=== PATIENT | male | born 1950 | race Caucasian/White ===

== ENCOUNTER → 2017-11-02 13:46 | Outpatient (CLI) | payer MEDICARE, BC ==
[2013-01-10 10:07] VITALS: BMI 46.9
[~2017-11-02 13:46] MED LIST: COUMADIN5 MG PO; GLUCOPHAGE1000 MG PO; KLOR-CON M2020 MEQ PO; LANTUS SOL100 UNIT/1 SQ; LASIX40 MG PO; LISINOPRIL10 MG PO; MAG-OX 400 MG400 MG PO; METAMUCIL FIB1 WAFER PO; MIRALAX17 GM PO; MULTI-DAY VITAM1 TAB PO; MVI; PERCOCET 10/3251 TA1 PO; PRAVACHOL40 MG PO; PREVASTATIN; SALINE FLUSH10 ML IV; WARFARIN; WESTCORT 0.2% C15 GM TP; ZYDONE PO; ZYLOPRIM300 MG PO; [UNRECOGNIZED DRUG - OTHER]; [UNRECOGNIZED DRUG - OTHER]; [UNRECOGNIZED DRUG - OTHER] PO
== END | disposition home or self-care (01) ==
LOC: D.CT 13:46
DX: M54.16 Radiculopathy, lumbar region (principal)

== ENCOUNTER → 2018-04-17 07:46 | Outpatient (CLI) | payer MEDICARE, BC ==
[2013-01-10 10:07] VITALS: BMI 46.9
[2018-04-17 08:23] LABS: BASOPHILS 0.3 % (0-2); EOSINOPHILS 2.1 % (0-7); HEMATOCRIT 42.8 % (42.0-54.0); HEMOGLOBIN 14.4 g/dL (13.5-17.5); IMMATURE GRANULOCYTES 0.5 % (0-5); LYMPHOCYTES 19.5 % (15-50); MCH 33.1 pg (26.0-34.0); MCHC 33.6 g/dL (31.0-37.0); MCV 98.4 fL (80.0-100.0); MEAN PLATELET VOLUME 9.2 fL (7.4-10.4); MONOCYTES 8.9 % (2-11); NEUTROPHILS 68.7 % (40-80); PLATELET COUNT 161 10x3/uL (130-400); RBC 4.35 10x6/uL (4.20-6.10); RDW 14.3 % (11.5-14.5); WBC 6.6 10x3/uL (4.8-10.8)
[2018-04-17 11:51] LABS: ERYTHROCYTE SEDIMENTATION RATE 30 mm/hr (0-20)
== END | disposition home or self-care (01) ==
LOC: D.NM 07:46
PROVIDERS: Orthopaedic Surgery
DX: M25.551 Pain in right hip (principal)

== ENCOUNTER → 2018-04-22 19:46 | Outpatient (CLI) | payer MEDICARE, BC ==
[2013-01-10 10:07] VITALS: BMI 46.9
== END | disposition home or self-care (01) ==
LOC: D.LABREF 19:46
DX: M16.11 Unilateral primary osteoarthritis, right hip (principal); Z11.8 Encounter for screening for other infectious and parasitic diseases

== ENCOUNTER 2018-04-25 10:26 | Inpatient (IN) | payer MEDICARE, BC ==
[~2018-04-25] VITALS: Ht 180.3 cm; Wt 127.5 kg
[2018-05-08] MEDS ORDERED: JANUMET XR 50-1 EACH PO (11:21)
[2018-05-08] MEDS ORDERED: LIPITOR20 MG PO (11:22)
[2018-05-08] MEDS ORDERED: XARELTO10 MG PO (11:22)
[2018-05-08] MEDS ORDERED: TOUJEO SOL300 UNIT/1 SC (11:23)
[2018-05-08] MEDS ORDERED: NEURONTIN 300300 MG PO (11:23)
[2018-05-08 12:07] LABS: APPEARANCE CLEAR (CLEAR); BILIRUBIN NEGATIVE (NEGATIVE); COLOR YELLOW (YELLOW); GLUCOSE NEGATIVE (NEGATIVE); KETONE NEGATIVE (NEGATIVE); NITRITE NEGATIVE (NEGATIVE); PROTEIN NEGATIVE (NEGATIVE); SPECIFIC GRAVITY 1.015 (1.005-1.020); UROBILINOGEN NORMAL (NORMAL)
[2018-05-08 12:38] LABS: BASOPHILS 0.4 % (0-2); EOSINOPHILS 1.7 % (0-7); HEMATOCRIT 43.5 % (42.0-54.0); HEMOGLOBIN 14.6 g/dL (13.5-17.5); IMMATURE GRANULOCYTES 0.6 % (0-5); MCH 33.3 pg (26.0-34.0); MCHC 33.6 g/dL (31.0-37.0); MCV 99.3 fL (80.0-100.0); MEAN PLATELET VOLUME 9.4 fL (7.4-10.4); MONOCYTES 9.9 % (2-11); NEUTROPHILS 71.4 % (40-80); PLATELET COUNT 169 10x3/uL (130-400); RBC 4.38 10x6/uL (4.20-6.10); RDW 14.5 % (11.5-14.5); WBC 9.4 10x3/uL (4.8-10.8)
[2018-05-08 12:50] LABS: APTT 28.1 SECONDS (22.8-39.4); INR 1.28 (0.85-1.17); PROTIME 15.4 SECONDS (11.6-15.0)
[2018-05-08 12:51] LABS: CALC OSMOLALITY 284 mosm/kg (275-300); CALCIUM 9.8 mg/dL (8.5-10.1); CARBON DIOXIDE 28.3 mmol/L (21.0-32.0); CHLORIDE - SERUM 105 mmol/L (98-107); POTASSIUM - SERUM 4.1 mmol/L (3.5-5.1); SODIUM 142 mmol/L (136-145); UREA NITROGEN 21 mg/dL (7-18); eGFR NON AFRICAN AMERICAN 79 mL/min (90-120)
[2018-05-08 12:52] LABS: GLUCOSE 85 mg/dL (74-106)
[2018-05-15 11:36] VITALS: BP 122/67; BMI 39.4
--- NOTE | 2018-05-15 23:50 | NUR ---
LAB AT BEDSIDE FOR STAT DRAW, XRAYS COMPLETE
[2018-05-15 23:57] LABS: HEMATOCRIT 41.4 % (42.0-54.0); LYMPHOCYTES 8.1 % (15-50); MCH 32.5 pg (26.0-34.0); MCHC 33.8 g/dL (31.0-37.0); MCV 96.1 fL (80.0-100.0); MEAN PLATELET VOLUME 8.2 fL (7.4-10.4); NEUTROPHILS 83.7 % (40-80); PLATELET COUNT 183 10x3/uL (130-400); RBC 4.31 10x6/uL (4.20-6.10); RDW 15.2 % (11.5-14.5); WBC 15.2 10x3/uL (4.8-10.8)
[2018-05-16 00:34] VITALS: BP 115/69
[2018-05-16 04:32] VITALS: BP 109/68; BMI 39.2
[2018-05-16 06:20] LABS: CALC OSMOLALITY 293 mosm/kg (275-300); CALCIUM 8.7 mg/dL (8.5-10.1); CARBON DIOXIDE 24.8 mmol/L (21.0-32.0); CHLORIDE - SERUM 108 mmol/L (98-107); CREATININE - SERUM 0.8 mg/dL (0.6-1.3); POTASSIUM - SERUM 4.3 mmol/L (3.5-5.1); SODIUM 145 mmol/L (136-145); UREA NITROGEN 16 mg/dL (7-18); eGFR NON AFRICAN AMERICAN > 90 mL/min (90-120)
[2018-05-16 06:41] LABS: GLUCOSE 170 mg/dL (74-106)
[2018-05-16 07:27] LABS: BASOPHILS 0.2 % (0-2); EOSINOPHILS 0 % (0-7); HEMATOCRIT 39.6 % (42.0-54.0); IMMATURE GRANULOCYTES 0.3 % (0-5); LYMPHOCYTES 5.3 % (15-50); MCHC 32.8 g/dL (31.0-37.0); MCV 97.5 fL (80.0-100.0); MEAN PLATELET VOLUME 9.7 fL (7.4-10.4); NEUTROPHILS 86.2 % (40-80); PLATELET COUNT 178 10x3/uL (130-400); RBC 4.06 10x6/uL (4.20-6.10); RDW 15.9 % (11.5-14.5); WBC 12.8 10x3/uL (4.8-10.8)
--- NOTE | 2018-05-16 07:39 | NUR ---
0100) REC'D.AWAKE ALERT AND ORIENTED WITH FAMILY IN ATTENDANCE.DRSG DRY AND INTACT TO LEFT HIP WITH HEMOVAC DRAIN AND PROVENA DRAIN. FOOT PINK AND WARM.WIGGLE TOES AND DORSIFLEXES PEDAL PULSE PRESENT.LEFT FOOT DUSKY IN COLOR WITH FAINT PULSE PALABLE PHOTOGRAPHS CURATOR OBSERVED ALSO.PATIENT STATES THIS FOOT WAS LIKE THIS PRIOR TO SURGERY.STATES WAS UNABLE TO DO BLOCK.DUE TO LARGELY OBESE ABDOMEN. DENIES PAIN AT PRESENT TIME.02 4L NC.02 SATS 97%WILL CONTINUE TO OBSERVE FOR ANY CHGES.IN NEUROVASCULAR STATUS AND FOLLOW CURRENT PLAN OF CARE.ROD DRAINING DK. YELLOW URINE.
--- NOTE | 2018-05-16 07:43 | NUR ---
REC'D IN WALKING ROUNDS AWAKE AND ALERT. RESP EVEN AND UNLABORED WITH NO DISTRESS NOTED. CAN EXPRESS NEEDS AND WANTS. NO C/O NOTED OR VOICED AT THIS TIME. NOTED DISCOLORATION TO LEFT LOWER EXT. ASSESSMENT COMPLETED. C/L IN REACH AT BEDSIDE.
[2018-05-16 11:02] VITALS: Ht 180.3 cm; Wt 127.5 kg
--- NOTE | 2018-05-16 18:45 | NUR ---
PATIENT SITTING UP IN BED WITH NO COMPLAINTS AT THIS TIME. FAMILY AT BEDSIDE. CALL LIGHTW JAXON GOLDBERG.
[2018-05-16 21:11] VITALS: BP 114/65
[2018-05-17 00:46] VITALS: BP 128/68
--- NOTE | 2018-05-17 03:49 | NUR ---
PT COMPLAINING OF BURNING TO RIGHT SIDE. FOUND LEAKING SEROSANGUINOUS FLUID FROM AROUND DRAIN SITE TUBING INSERTION SITE. DRAIN LINE STILL IN INSERTION SITE. NOTIFIED SONG AND DANCE PERFORMER WILLIE Francis APPLIED DRESSING TO SITE. TOLERATED WELL. VS STABLE AND AFEBRILE. NO VISUAL CUES OF DISTRESS NOTED. DENIES ANY OTHER NEEDS AT THIS TIME. BED LOW. SIDE RAILS UP X2. CALL LIGHT IN REACH. WILL CONTINUE TO MONITOR.
[2018-05-17 05:42] VITALS: BP 161/77
[2018-05-17 05:42] LABS: HEMOGLOBIN 11.5 g/dL (13.5-17.5); LYMPHOCYTES 13.2 % (15-50); MCH 33.2 pg (26.0-34.0); MCHC 34.8 g/dL (31.0-37.0); NEUTROPHILS 74.9 % (40-80); PLATELET COUNT 145 10x3/uL (130-400); RBC 3.46 10x6/uL (4.20-6.10); RDW 15.3 % (11.5-14.5)
[2018-05-17 05:43] LABS: MCV 95.4 fL (80.0-100.0); WBC 9.2 10x3/uL (4.8-10.8)
--- NOTE | 2018-05-17 07:30 | NUR ---
PT ASSISTED TO BSC AND BACK TO BED. WOUND VAC DRESSING INTACT AND DRAINING. HEMOVAC DRAIN INTACT AND DRAINING BLOODY DRAINAGE. 4X4'S TO DRAIN INSERTION SATURATED WITH SEROSANGEOUNOUS DRAINAGE. DRESSING CHANGED. F/C PATENT TO GRAVITY DRAINING YELLOW URINE. PT DENIES PAIN AT THIS TIME. CL WITHIN REACH. ENCOURAGED TO CALL WITH NEEDS. CONTINUE POC
--- NOTE | 2018-05-17 08:30 | NUR ---
DR. HOWARD PRESENT, INFORMED OF DRAINAGE SEEPING FROM HEMOVAC DRAIN SITE. ORDERED TO REMOVE HEMOVAC DRAIN AND COVER SITE WITH 4X4'S. PT ANGELIKA WELL. DRAIN TIP INTACT. AREA COVERED WITH 4X4'S AND TAPED INTO PLACE.
[2018-05-17 09:13] VITALS: BP 113/78
[2018-05-17 10:55] LABS: ALBUMIN 2.5 g/dL (3.4-5.0); ALKALINE PHOSPHATASE 70 U/L (46-116); ALT (SGPT) 17 U/L (10-68); CALC OSMOLALITY 280 mosm/kg (275-300); CALCIUM 9.3 mg/dL (8.5-10.1); CARBON DIOXIDE 25.2 mmol/L (21.0-32.0); CHLORIDE - SERUM 105 mmol/L (98-107); CREATININE - SERUM 0.7 mg/dL (0.6-1.3); GLUCOSE 159 mg/dL (74-106); PROTEIN - SERUM 5.6 g/dL (6.4-8.2); SODIUM 139 mmol/L (136-145); UREA NITROGEN 12 mg/dL (7-18); eGFR NON AFRICAN AMERICAN > 90 mL/min (90-120)
[2018-05-17 12:00] VITALS: BP 121/73
[2018-05-17 16:00] VITALS: BP 129/68
[2018-05-17 22:09] VITALS: BP 111/58
[2018-05-18 05:21] VITALS: BP 127/76
[2018-05-18 06:53] LABS: BASOPHILS 0.2 % (0-2); EOSINOPHILS 1.5 % (0-7); HEMATOCRIT 30.8 % (42.0-54.0); HEMOGLOBIN 10.1 g/dL (13.5-17.5); IMMATURE GRANULOCYTES 0.5 % (0-5); LYMPHOCYTES 11.3 % (15-50); MCH 31.6 pg (26.0-34.0); MCHC 32.8 g/dL (31.0-37.0); MCV 96.3 fL (80.0-100.0); MEAN PLATELET VOLUME 9.7 fL (7.4-10.4); NEUTROPHILS 75.5 % (40-80); PLATELET COUNT 151 10x3/uL (130-400); RDW 14.9 % (11.5-14.5); WBC 9.7 10x3/uL (4.8-10.8)
[2018-05-18 07:20] LABS: ALBUMIN 2.2 g/dL (3.4-5.0); ALKALINE PHOSPHATASE 71 U/L (46-116); ALT (SGPT) 15 U/L (10-68); BILIRUBIN - TOTAL 0.61 mg/dL (0.2-1.3); CALC OSMOLALITY 279 mosm/kg (275-300); CALCIUM 8.9 mg/dL (8.5-10.1); CARBON DIOXIDE 25.2 mmol/L (21.0-32.0); CHLORIDE - SERUM 105 mmol/L (98-107); CREATININE - SERUM 0.7 mg/dL (0.6-1.3); GLUCOSE 143 mg/dL (74-106); POTASSIUM - SERUM 3.6 mmol/L (3.5-5.1); PROTEIN - SERUM 5.5 g/dL (6.4-8.2); SODIUM 140 mmol/L (136-145); UREA NITROGEN 10 mg/dL (7-18); eGFR NON AFRICAN AMERICAN > 90 mL/min (90-120)
--- NOTE | 2018-05-18 08:00 | NUR ---
PT AOX4 RESP EVEN AND NONLABORED PT DENIES NEEDS AT THIS TIME IV TO RIGHT FOREARM PATENT AND INTACT AT THIS TIME SRX2 BED AT LOWEST SETTING CALL LIGHT WITHIN REACH WILL CONTINUE TO MONITOR
[2018-05-18 09:00] VITALS: BP 105/54
--- NOTE | 2018-05-18 11:00 | NUR ---
rehab prescreen: this pt would make a good canididate to inpatient rehab. will be able to admit for the trocanter fracture. we can bring down tomorrow if ok with the doctor. thank you for this eval. jay jay reardon lpn clinical liasion
[2018-05-18 13:40] VITALS: BP 99/58
[2018-05-18 18:20] VITALS: BP 92/51
--- NOTE | 2018-05-18 21:12 | NUR ---
PT HAS BEEN SITTING UP IN CHAIR. HAD SMALL LOOSE BM ON BEDPAN. ASSISTED PT USING WALKER TO GET BACK IN BED. WOUND VAC ON AND FUNCTIONING PROPERLY. FSBS 250 - TREATED WITH INSULIN PER SS. GAVE NORCO-7.5 FOR HEADACHE PAIN 06/02. GAVE SCHEDULED MEDS. NO OTHER NEEDS. ASSESSMENT PER FLOW-SHEET. WILL CONTINUE TO MONITOR.
[2018-05-18 21:44] VITALS: BP 103/54
[2018-05-19 01:13] VITALS: BP 96/51
[2018-05-19 05:31] VITALS: BP 107/54
[2018-05-19 06:52] LABS: BASOPHILS 0.4 % (0-2); EOSINOPHILS 3.6 % (0-7); HEMATOCRIT 28.7 % (42.0-54.0); HEMOGLOBIN 9.5 g/dL (13.5-17.5); IMMATURE GRANULOCYTES 0.5 % (0-5); LYMPHOCYTES 17.9 % (15-50); MCH 32.2 pg (26.0-34.0); MCHC 33.1 g/dL (31.0-37.0); MCV 97.3 fL (80.0-100.0); MEAN PLATELET VOLUME 9.7 fL (7.4-10.4); MONOCYTES 10.6 % (2-11); PLATELET COUNT 174 10x3/uL (130-400); RBC 2.95 10x6/uL (4.20-6.10); WBC 7.7 10x3/uL (4.8-10.8)
[2018-05-19 07:07] LABS: ALKALINE PHOSPHATASE 66 U/L (46-116); BILIRUBIN - TOTAL 0.61 mg/dL (0.2-1.3); CALCIUM 8.8 mg/dL (8.5-10.1); CARBON DIOXIDE 27.2 mmol/L (21.0-32.0); CHLORIDE - SERUM 106 mmol/L (98-107); CREATININE - SERUM 0.7 mg/dL (0.6-1.3); GLUCOSE 106 mg/dL (74-106); POTASSIUM - SERUM 3.9 mmol/L (3.5-5.1); PROTEIN - SERUM 5.3 g/dL (6.4-8.2); SODIUM 141 mmol/L (136-145); eGFR NON AFRICAN AMERICAN > 90 mL/min (90-120)
[2018-05-19 07:08] LABS: ALT (SGPT) 22 U/L (10-68); CALC OSMOLALITY 281 mosm/kg (275-300); UREA NITROGEN 14 mg/dL (7-18)
--- NOTE | 2018-05-19 07:15 | NUR ---
MORNING ASSESSMENT COMPLETE. SEE ASSESSMENT FLOWSHEET FOR FURTHER DETAILS. PT LYING IN BED AAO X4 TO PERSON, PLACE, TIME, AND SITUATION. DENIES NEEDS AT THIS TIME. CL IN REACH. SIDE RAILS UP X3 FOR PATIENT SAEFTY.
[2018-05-19 09:40] VITALS: BP 116/56
[2018-05-19 14:15] VITALS: BP 108/58
[2018-05-19] MEDS ORDERED: HYDROCODON-ACE1 EAC2 PO (16:48)
[2018-05-19] MEDS ORDERED: BAYER CHEWABLE81 MG PO (16:48)
== END 2018-05-19 18:21 | DRG 469 ==
LOC: D.SDCHOLD 05-08 10:00 → D.MS 05-15 11:00 → D.SDCHOLD 05-15 11:00 → D.MS 05-16 00:07
PROVIDERS: Family Medicine; ADMIT Orthopaedic Surgery
PROC: 0SR90JZ Replacement of Right Hip Joint with Synthetic Substitute, Open Approach (ICD-10-PCS; principal; 2018-05-15 13:30)
PROC: 0QS604Z Reposition Right Upper Femur with Internal Fixation Device, Open Approach (ICD-10-PCS; 2018-05-15 13:30)
DX: T84.030A Mechanical loosening of internal right hip prosthetic joint, initial encounter (principal); S72.111A Displaced fracture of greater trochanter of right femur, initial encounter for closed fracture; M97.01XA Periprosthetic fracture around internal prosthetic right hip joint, initial encounter; I10 Essential (primary) hypertension; E11.9 Type 2 diabetes mellitus without complications; I25.10 Atherosclerotic heart disease of native coronary artery without angina pectoris; E11.65 Type 2 diabetes mellitus with hyperglycemia

== ENCOUNTER → 2018-05-13 11:49 | Outpatient (CLI) | payer MEDICARE, BC ==
[2013-01-10 10:07] VITALS: BMI 46.9
[~2018-05-13 11:49] MED LIST changes: +BAYER CHEWABLE81 MG PO; +HYDROCODON-ACE1 EAC2 PO; +JANUMET XR 50-1 EACH PO; +LIPITOR20 MG PO; +NEURONTIN 300300 MG PO; +TOUJEO SOL300 UNIT/1 SC; +XARELTO10 MG PO
== END | disposition home or self-care (01) ==
LOC: D.CT 11:49
DX: M25.551 Pain in right hip (principal)

== ENCOUNTER 2018-05-19 15:00 | Inpatient (IN) | payer MEDICARE, BC ==
[~2018-05-19] VITALS: Ht 180.3 cm; Wt 127.5 kg
[~2018-05-19 15:00] MED LIST changes: -BAYER CHEWABLE81 MG PO; -HYDROCODON-ACE1 EAC2 PO
[2018-05-19] MEDS ORDERED: BAYER CHEWABLE81 MG PO (16:48)
[2018-05-19] MEDS ORDERED: HYDROCODON-ACE1 EAC2 PO (16:48)
--- NOTE | 2018-05-19 19:44 | NUR ---
ADMIT TO 1110 WITH [facility]RT HIP REVISION FOR PHYSICAL REHAB AND SERVICES OF DR MEDINA. AWAKE AND ALERT. ORIENTED X 4. RESPIRATIONS UNLABORED. WEARS C-PAP AT HS. RIGHT HIP WOUND VAC IN PLACE. SCDS X [address]. NOTED REDNESS WARMTH AND SWELLING NOTED TO RIGHT LEG ESPECIALLY AROUND KNEE. VOICES SOME CONCERN ABOUT DIABETIC MEDICATIONS. I EXPLAINED THAT WE WOULD REVIEW HIS MEDICATION. CALL LIGHT IN REACH.
[2018-05-19 21:54] VITALS: BP 116/63; BMI 39.2
[2018-05-19 23:58] LABS: APPEARANCE HAZY (CLEAR); BILIRUBIN NEGATIVE (NEGATIVE); COLOR PINK (YELLOW); GLUCOSE NEGATIVE (NEGATIVE); KETONE NEGATIVE (NEGATIVE); NITRITE NEGATIVE (NEGATIVE); PROTEIN 1+ mg/dL (NEGATIVE); UROBILINOGEN NORMAL (NORMAL)
[2018-05-19 23:59] LABS: BACTERIA NONE SEEN /hpf (NONE SEEN); EPITHELIAL CELLS NSEEN /hpf (0-5); RED CELLS - URINE >50 /hpf (0-5); WHITE CELLS - URINE 0-5 /hpf (0-5)
--- NOTE | 2018-05-20 05:15 | NUR ---
QUIET HOURS. NO DISTRESS NOTED. RESTING QUIETLY WITH RESPIRATIONS UNLABORED. ROD PATENT. WOUND VAC IN PLACE. CALL LIGHT IN REACH.
[2018-05-20 06:55] LABS: BASOPHILS 0.4 % (0-2); EOSINOPHILS 4.3 % (0-7); HEMATOCRIT 29.8 % (42.0-54.0); HEMOGLOBIN 9.9 g/dL (13.5-17.5); IMMATURE GRANULOCYTES 0.6 % (0-5); LYMPHOCYTES 18.9 % (15-50); MCH 32.2 pg (26.0-34.0); MCHC 33.2 g/dL (31.0-37.0); MCV 97.1 fL (80.0-100.0); MEAN PLATELET VOLUME 9.2 fL (7.4-10.4); MONOCYTES 10.9 % (2-11); NEUTROPHILS 64.9 % (40-80); PLATELET COUNT 190 10x3/uL (130-400); RBC 3.07 10x6/uL (4.20-6.10); RDW 14.9 % (11.5-14.5)
[2018-05-20 07:11] LABS: WBC 5.4 10x3/uL (4.8-10.8)
[2018-05-20 07:15] LABS: CALC OSMOLALITY 283 mosm/kg (275-300); CALCIUM 9.4 mg/dL (8.5-10.1); CARBON DIOXIDE 26.4 mmol/L (21.0-32.0); CHLORIDE - SERUM 106 mmol/L (98-107); CREATININE - SERUM 0.6 mg/dL (0.6-1.3); GLUCOSE 139 mg/dL (74-106); POTASSIUM - SERUM 3.8 mmol/L (3.5-5.1); SODIUM 142 mmol/L (136-145); eGFR NON AFRICAN AMERICAN > 90 mL/min (90-120)
[2018-05-20 07:17] LABS: UREA NITROGEN 10 mg/dL (7-18)
--- NOTE | 2018-05-20 08:31 | NUR ---
PATIENT AWAKE WITH SOME CONFUSION AND FORGETFULNESS THIS MORNING. SITTING UP IN WHEELCHAIR EATING BREAKFAST. ATE 100% OF BREAKFAST. NO COMPLAINTS AT THIS TIME. CALL LIGHT WITHIN REACH. WILL CONTINUE TO MONITOR.
[2018-05-20 09:17] VITALS: Ht 180.3 cm; Wt 127.5 kg
--- NOTE | 2018-05-20 12:45 | NUR ---
PATIENT ALERT AND ORIENTED. ATE 100% OF BREAKFAST. NO COMPLAINTS OF PAIN OR DISCOMFORT. RIGHT KNEE IS SWOLLEN, PINK AND WARM TO TOUCH. DR. MEDINA INFORMED. UP FOR THERAPY THIS MORNING AND TOLERATED WELL. WOUND VAC TO RIGHT HIP IN PLACE NO DRAINAGE NOTED IN TUBING. CALL LIGHT WITHIN REACH. WILL CONTINUE TO MONITOR.
--- NOTE | 2018-05-20 14:04 | NUR ---
ROD CATHETER TO BE DC'D. BLADDER TRAINING STARTED.
--- NOTE | 2018-05-20 16:31 | NUR ---
PATIENT ADMITTED TO REHAB FROM ACUTE FLOOR. DR. STORM IS HIS PCP. DISCHARGE PLANS ARE FOR PATIENT TO RETURN HOME. WILL CONTINUE TO FOLLOW WITH PATIENT.
--- NOTE | 2018-05-20 19:50 | NUR ---
THE PATIENT WAS WATCHING TRELEVISION WHEN STAFF ENTERED HIS ROOM. BED IS IN THE LOW POSITION WITH SIDERAILS X2 AND CALL LIGHT WITHIN REACH. PATIENT DEMONSTRATES APPROPRIATE USE OF A CALL LIGHT. THE PATIENT APPEARS COMFORTABLE WITH NO QUESTIONS OR CONCERNS AT THIS TIME.
[2018-05-20 20:04] VITALS: BP 112/59
--- NOTE | 2018-05-21 01:44 | NUR ---
THE PATIENT APPEARS TO BE SLEEPING COMFORTABLY. BED IN THE LOW POSITION WITH SIDERAILS X2 AND CALL LIGHT WITHIN REACH.
--- NOTE | 2018-05-21 07:35 | NUR ---
PT LYING IN BED WATCHING TV. CALL LIGHT IN REACH. PT DENIES NEEDS OR PAIN. BED IN LOW. SIDE RAILS X2. WILL CONTINUE TO MONITOR.
[2018-05-21 08:00] VITALS: BP 95/65
--- NOTE | 2018-05-21 13:19 | NUR ---
PT LYING IN BED. CALL LIGHT IN REACH. PT DENIES NEEDS OR PAIN. WCTM
--- NOTE | 2018-05-21 17:34 | NUR ---
PT SITTING UP IN BED. CALL LIGHT IN REACH. PT DENIES NEEDS OR PAIN WCTM
--- NOTE | 2018-05-21 19:15 | NUR ---
THE PATIENT WAS WATCHING TELEVISION WHEN STAFF ENTERED HIS AREA. BED IS IN THE LO WPOSITION WITH SIDERAILS X2 AND CALL LIGHT WITHIN REACH. WOUND VAC AND SCDS RUNNING. THE PATIENT WAS EDUCATED TO CALL FOR NURSE IF HE HAS TO GET OUT OF BED. THE PATIENT DEMONSTRATES UNDERSTANDING VIA TEACHBACK METHOD. THE PATIENT APPEARS COMFORTABLE WITH NO QUESTIONS OR CONCERNS AT THIS TIME.
[2018-05-21 20:00] VITALS: BP 107/54
--- NOTE | 2018-05-22 02:08 | NUR ---
THE PATIENT APPEARS TO SLEEPING. BED IS IN THE LO WPOSITION WITH SIDERAILS X2 AND CALL LIGHT WITHIN REACH.
[2018-05-22 06:48] LABS: BASOPHILS 0.5 % (0-2); EOSINOPHILS 4.8 % (0-7); HEMATOCRIT 29.5 % (42.0-54.0); HEMOGLOBIN 9.6 g/dL (13.5-17.5); IMMATURE GRANULOCYTES 1.3 % (0-5); LYMPHOCYTES 15.4 % (15-50); MCH 31.7 pg (26.0-34.0); MCHC 32.5 g/dL (31.0-37.0); MCV 97.4 fL (80.0-100.0); MEAN PLATELET VOLUME 9.2 fL (7.4-10.4); RBC 3.03 10x6/uL (4.20-6.10); RDW 14.8 % (11.5-14.5); WBC 6.1 10x3/uL (4.8-10.8)
[2018-05-22 06:57] LABS: PLATELET COUNT 277 10x3/uL (130-400)
[2018-05-22 07:11] LABS: CALCIUM 9.3 mg/dL (8.5-10.1); CARBON DIOXIDE 28.8 mmol/L (21.0-32.0); CHLORIDE - SERUM 106 mmol/L (98-107); GLUCOSE 135 mg/dL (74-106); POTASSIUM - SERUM 3.9 mmol/L (3.5-5.1); SODIUM 142 mmol/L (136-145)
[2018-05-22 07:15] LABS: CALC OSMOLALITY 285 mosm/kg (275-300); CREATININE - SERUM 0.8 mg/dL (0.6-1.3); UREA NITROGEN 15 mg/dL (7-18); eGFR NON AFRICAN AMERICAN > 90 mL/min (90-120)
[2018-05-22 08:00] VITALS: BP 111/64
--- NOTE | 2018-05-22 08:00 | NUR ---
SHIFT ASSMT COMPLETED.
--- NOTE | 2018-05-22 10:28 | RHP ---
PATIENT: MARIOLA DEGROOT MEDICAL RECORD: [id number] ACCOUNT: [id number] [facility] AD[facility] DATE: 05/19/18 REHABILITATION HISTORY AND PHYSICAL EXAMINATION POST ADMISSION PHYSICIAN EXAMINATION DATE OF ADMISSION: 05/19/2018. ADMITTING DIAGNOSIS: Right greater trochanteric fracture. HISTORY OF PRESENT ILLNESS: The patient is a 67-year-old gentleman who is admitted secondary to right greater trochanteric fracture status post right total hip arthroplasty. The patient was admitted on 05/15/2018 for revision of right hip arthroplasty due to loose hardware. It was noted towards the end of surgery that the greater trochanter was fractured. After the patient signed informed consent, he was taken to the operating room and placed under general anesthesia. He was rolled into the left lateral decubitus position with padding between his legs and the patient had a dissection done through the iliotibial band and anterior aspect of the femur. He was noted to have extensive scarring. The femoral head was removed. Cultures and everything were obtained. The patient's hip was examined throughout surgery and seemed to do well. The patient was then placed out to the floor. He currently has a wound VAC hooked up to the incision site. He is currently using a Butts for urination due to lack of mobility. He is nonweightbearing on his right lower extremity for the first 6 weeks and not able to participate in any abduction. He is currently on oxygen at 2 liters per nasal cannula for shortness of breath and has a flutter valve and inspiratory spirometry. The patient also has history of sleep apnea and wears CPAP at bedtime. He is 20% assist with therapy, currently only able to ambulate short distances in the room using a rolling walker. He is low to min assist while maintaining nonweightbearing process on his right lower extremity. He is wanting to return home with his to his prior level of function and will need to work on his nonweightbearing status since he has to remain this for an extended period of time. He will also need to manage and monitor his pain control since he had such an extensive surgery. He is hopefully going to do well here and therapy here, so he can return back to home with his to as close to his prior level of functioning as possible. COMORBIDITIES: In this patient include hypertension, coronary artery disease, peripheral vascular disease, hyperlipidemia, neuropathy, status post right total hip arthroplasty, gout, gastric ulcers, chronic constipation, arthritis, dermatitis, and diabetes. PAST MEDICAL HISTORY: Significant for coronary artery disease, hiatal hernia, chronic back pain, diabetes. PAST SURGICAL HISTORY: Includes a right total hip arthroplasty. He has had a radial nerve ablation to his back and hiatal hernia repair. ALLERGIES: FENOFIBRATE, ZETIA, HMG-COA REDUCTASE MEDICINES, AND SHELLFISH. CURRENT MEDICATIONS: Include a glucose replacement protocol as needed. He is on a low-resistant sliding scale Humalog. He is on metformin he takes 2000 mg daily, Januvia 100 mg daily, Xarelto 10 mg daily, potassium 20 mEq in daily, MiraLax 17 grams b.i.d., multivitamin daily, Mag-Ox 400 mg b.i.d., Zestril 10 mg daily, Lantus 20 units subq daily, Neurontin 300 mg t.i.d. He is on Lasix 40 mg HISTORY AND PHYSICAL [id number] MARIOLA DEGROOT b.i.d., atorvastatin 20 mg q.h.s., aspirin 325 mg daily, allopurinol 300 mg daily, and [place] 7.5 one tab every 4 hours p.r.n. HABITS: No current alcohol or tobacco use. FAMILY HISTORY: Noncontributory. SOCIAL HISTORY: The patient hopes to return back home with his and get back to his prior level of functioning. REVIEW OF SYSTEMS: GENERAL: Does complain of some weakness and fatigue. HEENT: Denies cold, cough, or congestion. CARDIOVASCULAR: Denies chest pain. PHYSICAL EXAMINATION: VITAL SIGNS: Show temperature of 100 right on the dot, pulse is 77, respirations are 20, his blood pressure is 116/63, and sat is 94%. GENERAL: A morbidly obese gentleman in no acute distress, alert upon exam. HEENT: Normocephalic and atraumatic. Mucosa moist. NECK: Supple. No lymphadenopathy. LUNGS: Clear at this time with no wheeze, rhonchi, or rales. HEART: Regular rate and rhythm. No murmurs, rubs or gallops. ABDOMEN: Benign. No rebound, no guarding. EXTREMITIES: He does have some noted postop swelling. He also has some redness to his knee. NEUROLOGIC: He does have some proximal muscle weakness. LABORATORY DATA: White count is 5.4, H&H 9.9 and 29.8, platelet count is 190. Sodium 142, potassium 3.8, BUN and creatinine of 10 and 0.6 and blood sugar was noted to be 139. His admit UA did show some protein and some blood, trace leukocyte esterase, but no bacteria. ASSESSMENT: This is a 67-year-old gentleman admitted to the rehab with a working diagnosis of status post right hip total arthroscopy. The patient has potential to make improvement. We instituted the following multidisciplinary therapies including, but not limited to physical, occupational, respiratory, speech, nutritional services, prosthetics and orthotics. Given his complex medical condition and risk for more complications, rehabilitation services cannot be provided at a low level of care such as skilled nurse facility. PLAN: 1. Admit to [facility] rehab for intensive inpatient therapy to include the following disciplines: A. Physical therapy to improve gait, all transfer skills and bed mobility to a modified independent level. B. Occupational therapy to improve activities of daily living to a modified independent level. C. Case management to assist with discharge planning and placement options. D. Nutrition to assist with nutritional needs. E. Rehabilitation nursing to assist in monitoring the patient's underlying medical conditions and to assist with any type of bowel or bladder management. 2. The patient's current medication and medical care will be continued. 3. The patient will be placed on standard fall precautions. 4. The patient's estimated length of stay is approximately 7-10 days. HISTORY AND PHYSICAL [id number] MARIOLA DEGROOT 5. We will watch his knee area closely. I will start him back on antibiotics. He is discharged from the floor and we will follow up again in the a.m. TRANSINT:[id number] Voice Confirmation ID: [id number] DOCUMENT ID: [id number] BC notes whether there has been none or any medical/functional change since admission: - No change since preadmission screen. BC attests patient continues to be appropriate for IRF: - Continues to be appropriate. JENNIFER MEDINA MD at 1028 CC: [id number] DICTATION DATE: 05/20/18 0803 MILLINERY BLOCKER: 05/20/18 0832 ADM IN [facility] [address] [place] [address]
--- NOTE | 2018-05-22 19:28 | NUR ---
PT SITTING UP IN BED. CALL LIGHT IN REACH. PT DENIES NEEDS OR PAIN. BED IN LOW. SIDE RAILS X2. RESP EVEN AND UNLABORED. WCTM
[2018-05-22 21:37] VITALS: BP 127/62
--- NOTE | 2018-05-23 00:25 | NUR ---
PT RESTING QUIETLY. CALL LIGHT IN REACH. NO SIGNS OF DISTRESS OR PAIN. WCTM
--- NOTE | 2018-05-23 02:59 | NUR ---
RESTING IN BED WITH NO DISTRESS NOTED. CALL LIGHT IN REACH.
--- NOTE | 2018-05-23 05:02 | NUR ---
PT RESTING QUIETLY. CALL LIGHT IN REACH. NO SIGNS OF DISTRESS. WCTM
[2018-05-23 08:00] VITALS: BP 126/60
--- NOTE | 2018-05-23 08:00 | NUR ---
SHIFT ASSMT COMPLETED.
--- NOTE | 2018-05-23 19:24 | NUR ---
PT SITTING IN BED. CALL LIGHT IN REACH. PT DENIES NEEDS OR PAIN. RESP EVEN AND UNLABORED. WCTM
[2018-05-23 21:10] VITALS: BP 140/115
--- NOTE | 2018-05-24 00:36 | NUR ---
PT RESTING QUIETLY. EYES CLOSED. CALL LIGHT IN REACH. NO SIGNS OF DISTRESS OR PAIN. CPAP ON. BED IN LOW. SIDE RAILS X2. WCTM
--- NOTE | 2018-05-24 02:43 | NUR ---
SLEEPING WITH RESPIRATIONS UNLABORED. NO DISTRESS NOTED.
--- NOTE | 2018-05-24 04:16 | NUR ---
PT RESTING QUIETLY. CALL LIGHT IN REACH. NO SIGNS OF DISTRESS OR PAIN. WCTM
[2018-05-24 06:55] LABS: BASOPHILS 0.4 % (0-2); EOSINOPHILS 4.4 % (0-7); HEMATOCRIT 29.4 % (42.0-54.0); HEMOGLOBIN 9.5 g/dL (13.5-17.5); IMMATURE GRANULOCYTES 2.2 % (0-5); LYMPHOCYTES 17.3 % (15-50); MCH 31.8 pg (26.0-34.0); MCHC 32.3 g/dL (31.0-37.0); MCV 98.3 fL (80.0-100.0); MEAN PLATELET VOLUME 8.8 fL (7.4-10.4); MONOCYTES 9.2 % (2-11); NEUTROPHILS 66.5 % (40-80); RBC 2.99 10x6/uL (4.20-6.10); RDW 15.1 % (11.5-14.5); WBC 6.8 10x3/uL (4.8-10.8)
[2018-05-24 07:07] LABS: CALC OSMOLALITY 280 mosm/kg (275-300); CALCIUM 9.3 mg/dL (8.5-10.1); CARBON DIOXIDE 25.1 mmol/L (21.0-32.0); CHLORIDE - SERUM 106 mmol/L (98-107); CREATININE - SERUM 0.7 mg/dL (0.6-1.3); GLUCOSE 109 mg/dL (74-106); POTASSIUM - SERUM 4.1 mmol/L (3.5-5.1); SODIUM 140 mmol/L (136-145); UREA NITROGEN 15 mg/dL (7-18); eGFR NON AFRICAN AMERICAN > 90 mL/min (90-120)
[2018-05-24 07:14] LABS: PLATELET COUNT 333 10x3/uL (130-400)
--- NOTE | 2018-05-24 08:15 | NUR ---
PT RESTING IN BED WITH EYES OPEN CALL LIGHT IN REACH NO PROBLEMS WILL MONITER
[2018-05-24 09:35] VITALS: BP 116/65
--- NOTE | 2018-05-24 15:47 | NUR ---
PT RESTING IN BED WITH EYES OPEN CALL LIGHT IN REACH NO PROBLEMS WILL MONITER
--- NOTE | 2018-05-24 19:42 | NUR ---
THE PATIENT WAS WATCHING TELEVISION WHEN STAFF ENTERED EHR ROOM. BED IS IN THE LO WPOSITION WITH SIDERAILS X2 AND CALL LIGHT WITHIN REACH. THE PATIENT WAS EDUCATED ON THE NEED TO CALL FOR ASSISTANCE WHENEVER HE WANTS TO GET OUT OF BED. THE PATIENT DEMONSTRATES UNDERSTANDING VIA TEACHBACK METHOD. THE PATIENT APPEARS COMFORTABLE WITH NO QUESTIONS OR CONCERNS AT THIS TIME.
[2018-05-24 21:21] VITALS: BP 121/58
--- NOTE | 2018-05-25 02:33 | NUR ---
THE PATIENT APPEARS TO BE SLEEPING COMFORTABLY. BED IN THE LO WPOSITION WITH SIDERAILS X2 AND CALL LIGHT WITHIN REACH.
[2018-05-25 07:14] VITALS: BP 127/61
[2018-05-25 08:00] VITALS: BP 127/61
--- NOTE | 2018-05-25 08:04 | NUR ---
SITTING UP IN BED WATCHING TV. DENIES INCREASED PAIN. IS ALERT AND ORIENTED. CALL LIGHT IN REACH
--- NOTE | 2018-05-25 13:05 | NUR ---
SITTING UP IN BED EATING LUNCH. USES URINAL FOR VOIDING ASST. DENIES NEEDS OR C/O. CALL LIGHT IN REACH
--- NOTE | 2018-05-25 19:30 | NUR ---
THE PATIENT WAS LYING IN BED AND WATCHING TELEVISION WHEN STAFF ENTERED HIS ROOM. BED IS IN THE LOW POSITION WITH SIDERAILS X2 AND CALL LIGHT WITHIN REACH. THE PATIENT WAS EDUCATED ON THE NEED TO CALL THE NURSE WHEN HE WANTS TO GET OUT OF BED. THE PATIENT DEMONSTRATES UNDERSTANDING VIA TEACHBACK METHOD. THE PATIENT APPEARS COMFORTABLE AND HAS NO QUESTIONS OR CONCERNS AT THIS TIME.
--- NOTE | 2018-05-26 01:27 | NUR ---
THE PATIENT APPEARS TO BE SLEEPING. BED IS THE LOW POSITION WITH SIDERAILS X2 AND CALL LIGHT WITHIN REACH.
[2018-05-26 03:42] VITALS: BP 109/65
[2018-05-26 08:14] VITALS: BP 113/51
--- NOTE | 2018-05-26 17:10 | NUR ---
SITTING UP IN BED. DENIES INCREASED PAIN TO HIP. USES URINAL IN BED. DOES MOST OF OWN TASKS BY SELF. CALL LIGHT IN REACH
--- NOTE | 2018-05-26 19:54 | NUR ---
THE PATIENT WAS LYING IN BED AND WATCHING TELEVISION WHEN STAFF ENTERED HIS AREA. BED IS IN TH [place] WPOSITION WITH SIDERAILS X2 AND CALL LIGHT WITHIN REACH. THE PATIENT WAS EDUCATED ON TO CALL THE NURSE WHENEVER HE NEEDS TO GET UP. THE PATIENT DEMONSTRATES UNDERSTANDING VIA TEACHBACK METHOD. THE PATIENT APPEARS COMFORTABLE WITH NO QUESTIONS OR CONCERNS AT THIS TIME.
[2018-05-26 21:55] VITALS: BP 118/63
--- NOTE | 2018-05-27 03:04 | NUR ---
THE PATIENT IS WATCHING TELEVISION. HE APPEARS COMFORTABLE AND HAS NO QUESTIONS OR CONCERNS AT THIS TIME.
[2018-05-27 07:59] LABS: BASOPHILS 0.5 % (0-2); EOSINOPHILS 2.8 % (0-7); HEMATOCRIT 32.2 % (42.0-54.0); HEMOGLOBIN 10.3 g/dL (13.5-17.5); LYMPHOCYTES 17.1 % (15-50); MCH 31.9 pg (26.0-34.0); MCV 99.7 fL (80.0-100.0); MEAN PLATELET VOLUME 8.9 fL (7.4-10.4); MONOCYTES 6.9 % (2-11); NEUTROPHILS 70.7 % (40-80); RBC 3.23 10x6/uL (4.20-6.10); RDW 15.3 % (11.5-14.5); WBC 7.9 10x3/uL (4.8-10.8)
[2018-05-27 08:10] LABS: PLATELET COUNT 402 10x3/uL (130-400)
[2018-05-27 08:16] LABS: CALC OSMOLALITY 285 mosm/kg (275-300); CALCIUM 9.5 mg/dL (8.5-10.1); CARBON DIOXIDE 30.7 mmol/L (21.0-32.0); CHLORIDE - SERUM 106 mmol/L (98-107); CREATININE - SERUM 0.7 mg/dL (0.6-1.3); GLUCOSE 99 mg/dL (74-106); POTASSIUM - SERUM 4.4 mmol/L (3.5-5.1); SODIUM 143 mmol/L (136-145); UREA NITROGEN 15 mg/dL (7-18); eGFR NON AFRICAN AMERICAN > 90 mL/min (90-120)
[2018-05-27 08:31] VITALS: BP 116/65
--- NOTE | 2018-05-27 09:28 | NUR ---
Reviewed chart and spoke with pt about nutrition Pt eating 75-100% on diabetic diet Encouraged protein Pt continues to be screened at low nutritional risk RD following per protocol
[2018-05-27 16:52] LABS: APPEARANCE HAZY (CLEAR); BILIRUBIN NEGATIVE (NEGATIVE); COLOR YELLOW (YELLOW); GLUCOSE NEGATIVE (NEGATIVE); KETONE NEGATIVE (NEGATIVE); NITRITE NEGATIVE (NEGATIVE); PROTEIN NEGATIVE (NEGATIVE); UROBILINOGEN NORMAL (NORMAL)
--- NOTE | 2018-05-27 17:04 | NUR ---
SITTING UP IN BED. HAS BEEN IN THERAPY THIS AFTERNOON. DENIES NEEDS OR INCREASED PAIN. DR MEDINA ORDERED UA. RESULTS PENDING. STILL NWB TO RLE. CALL LIGHT IN REACH
[2018-05-27 20:00] VITALS: BP 112/62
--- NOTE | 2018-05-27 20:26 | NUR ---
PT FAMILY AT BEDSIDE, UP TO TOILET, FLUIDS AND CALL LIGHT WITHIN REACH
--- NOTE | 2018-05-28 01:14 | NUR ---
PT'S 7 DAY DRSG SATURATED WITH DARK RED DRAINAGE, DIVINA INTACT, CLEANED PATTED DRY RECOVERED WITH MEPILEX DRSG, TODAY WOULD HAVE BEEN DAY 6 OF 7, FLUIDS AND CALL LIGHT WITHIN REACH
--- NOTE | 2018-05-28 08:00 | NUR ---
SHIFT ASSMT COMPLETED.
[2018-05-28 08:20] VITALS: BP 124/64
[2018-05-28 20:00] VITALS: BP 132/82
--- NOTE | 2018-05-28 23:50 | NUR ---
PT UP TO TOILET, SHOWERED, FLUIDS AND CALL LIGHT WIHIN REACH
[2018-05-29 07:49] LABS: CALC OSMOLALITY 281 mosm/kg (275-300); CALCIUM 9.5 mg/dL (8.5-10.1); CARBON DIOXIDE 27.9 mmol/L (21.0-32.0); CHLORIDE - SERUM 105 mmol/L (98-107); CREATININE - SERUM 0.8 mg/dL (0.6-1.3); GLUCOSE 93 mg/dL (74-106); POTASSIUM - SERUM 4.4 mmol/L (3.5-5.1); SODIUM 141 mmol/L (136-145); UREA NITROGEN 14 mg/dL (7-18); eGFR NON AFRICAN AMERICAN > 90 mL/min (90-120)
[2018-05-29 07:53] LABS: BASOPHILS 0.6 % (0-2); EOSINOPHILS 2.9 % (0-7); HEMATOCRIT 32.7 % (42.0-54.0); HEMOGLOBIN 10.4 g/dL (13.5-17.5); IMMATURE GRANULOCYTES 1.6 % (0-5); LYMPHOCYTES 20.4 % (15-50); MCH 31.5 pg (26.0-34.0); MCHC 31.8 g/dL (31.0-37.0); MCV 99.1 fL (80.0-100.0); MEAN PLATELET VOLUME 9.1 fL (7.4-10.4); MONOCYTES 8.5 % (2-11); PLATELET COUNT 407 10x3/uL (130-400); RDW 15.3 % (11.5-14.5); WBC 6.8 10x3/uL (4.8-10.8)
[2018-05-29 08:00] VITALS: BP 119/67
--- NOTE | 2018-05-29 08:00 | NUR ---
SHIFT ASSMT COMPLETED.DENIES NEEDS
--- NOTE | 2018-05-29 16:47 | NUR ---
CARE TEAM MEETING: PATIENT PROGRESSING WELL IN THERAPY AND TENATIVE DSICHARGE DATE IS 06/05/18. WILL CONTINUE TO FOLLOW WITH PATIENT.
--- NOTE | 2018-05-29 20:28 | NUR ---
PT UP TO TOILET HAD BM, BACK TO BED, HIP DRSG C/D/I, FLUIDS AND CALL LIGHT WITHIN REACH
[2018-05-29 22:57] VITALS: BP 108/54
--- NOTE | 2018-05-30 01:27 | NUR ---
PT ASLEEP, HOME CPAP ON, FLUIDS AND CALL LIGHT WITHIN REACH
--- NOTE | 2018-05-30 06:50 | NUR ---
GAVE PT SHOWER, CHANGED HIP DRESSING, LEFT COMPRESSION STOCKINGS OFF AT PT REQUEST, SMALL AREA LEFT BURKS BLEEDING PLACED GAUZE KERLIX OVER AREA, PT STATES ANY TAPE USED ON SKIN WILL RIP SKIN OFF WHEN REMOVED
[2018-05-30 08:00] VITALS: BP 116/74
--- NOTE | 2018-05-30 08:19 | NUR ---
PT SITTING UP IN BED EATING BREAKFAST, DENIES NEEDS. WCTM.
--- NOTE | 2018-05-30 10:19 | NUR ---
PT AM MEDS ADMINISTERED. PT CURRENTLY PARTICIPATING IN THERAPY. PT DENIES NEEDS. WCTM.
--- NOTE | 2018-05-30 19:45 | NUR ---
REST IN BED AND WATCH TV.
[2018-05-30 21:20] VITALS: BP 89/64
--- NOTE | 2018-05-31 01:42 | NUR ---
REST QUIETLY IN BED, RESP EVEN, NO DISTRESS. CALL LIGHT IN REACH.
--- NOTE | 2018-05-31 01:53 | NUR ---
RESTING IN BED WITH RESPIRATIONS UNLABORED. NO DISTRESS NOTED. CALL LIGHT IN REACH.
--- NOTE | 2018-05-31 05:12 | NUR ---
ASSISTED PT TO BATHROOM, AND PT HAS BIG AMOUNT OF YELLOW BOWEL.
[2018-05-31 07:44] LABS: BASOPHILS 0.8 % (0-2); EOSINOPHILS 2.9 % (0-7); HEMATOCRIT 33.2 % (42.0-54.0); HEMOGLOBIN 10.6 g/dL (13.5-17.5); IMMATURE GRANULOCYTES 1.4 % (0-5); LYMPHOCYTES 19.4 % (15-50); MCH 31.5 pg (26.0-34.0); MCHC 31.9 g/dL (31.0-37.0); MCV 98.5 fL (80.0-100.0); MEAN PLATELET VOLUME 9.1 fL (7.4-10.4); MONOCYTES 8.2 % (2-11); NEUTROPHILS 67.3 % (40-80); PLATELET COUNT 379 10x3/uL (130-400); RBC 3.37 10x6/uL (4.20-6.10); RDW 15.4 % (11.5-14.5); WBC 6.6 10x3/uL (4.8-10.8)
[2018-05-31 08:00] VITALS: BP 115/66
[2018-05-31 08:01] LABS: CALC OSMOLALITY 284 mosm/kg (275-300); CALCIUM 9.2 mg/dL (8.5-10.1); CARBON DIOXIDE 27.1 mmol/L (21.0-32.0); CHLORIDE - SERUM 105 mmol/L (98-107); CREATININE - SERUM 0.8 mg/dL (0.6-1.3); GLUCOSE 95 mg/dL (74-106); POTASSIUM - SERUM 4.1 mmol/L (3.5-5.1); SODIUM 142 mmol/L (136-145); UREA NITROGEN 17 mg/dL (7-18); eGFR NON AFRICAN AMERICAN > 90 mL/min (90-120)
--- NOTE | 2018-05-31 10:07 | NUR ---
PT AM MEDS ADMINSIETERD. PT LEORA NEEDS. WCTM.
--- NOTE | 2018-05-31 17:54 | NUR ---
PT SHOWERED. PT INCISION LEFT DIRECTOR IT PROJECT. 29 DIVINA REMOVED. 7 DIVINA REMAIN TO LOWER PART OF INCISION. PT EATING DINNER. FAMILY AT BEDSIDE. TM.
--- NOTE | 2018-05-31 19:00 | NUR ---
PATIENT IS RESTING IN HIS BED. HE DENIES ANY NEEDS. BED IS DOWN LOW WITH SIDE RAILS UP X2 AND CALL LIGHT IS IN REACH.
[2018-05-31 20:22] VITALS: BP 110/62
--- NOTE | 2018-06-01 00:02 | NUR ---
PATIENT IS SLEEPING. BED IS DOWN LOW WITH SIDE RAILS UP X2. CALL LIGHT IS IN REACH.
--- NOTE | 2018-06-01 04:02 | NUR ---
PATIENT IS AWAKE. HE DENIES ANY NEEDS. BED IS DOWN LOW WITH SIDE RAILS UP X2 AND CALL LIGHT IN REACH.
--- NOTE | 2018-06-01 07:26 | NUR ---
PT RESTING IN BED, DENIES NEEDS. WCTM.
--- NOTE | 2018-06-01 08:51 | NUR ---
PT AM MEDS ADMINISTERED. PT DENIES NEEDS. WCTM.
--- NOTE | 2018-06-01 18:28 | NUR ---
PT RESTING IN BED EATING DINNER, LEORA NEEDS. WCTM.
--- NOTE | 2018-06-01 19:03 | NUR ---
PATIENT IS RESTING IN HIS BED. BED IS DOWN LOW WITH SIDE RAILS UP X2. CALL LIGHT IS IN REACH.
[2018-06-01 22:32] VITALS: BP 121/53
--- NOTE | 2018-06-02 00:03 | NUR ---
PATIENT IS SLEEPING. HIS BED IS DOWN LOW WITH SIDE RAILS UP X2 AND CALL LIGHT IN REACH.
--- NOTE | 2018-06-02 04:10 | NUR ---
PATIENT IS RESTING IN HIS BED. DENIES ANY NEEDS. BED DOWN LOW. SIDE RAILS UP X2. CL IN REACH.
--- NOTE | 2018-06-02 08:00 | NUR ---
SHIFT ASSMT COMPLETED,DIVINA TO LOWER PORTION OF INCISION INTACT.BREAKFAST TRAY GIVEN.
[2018-06-02 08:32] VITALS: BP 109/61
--- NOTE | 2018-06-02 19:12 | NUR ---
PATIENT IS RESTING IN BED. HE DENIES ANY NEEDS. BED IS DOWN LOW WITH SIDE RAILS UP X2 AND CL IN REACH.
[2018-06-02 20:50] VITALS: BP 115/59
--- NOTE | 2018-06-03 00:02 | NUR ---
PATIENT IS SLEEPING. BED IS DOWN LOW WITH SIDE RAILS UP X2. CL IS IN REACH.
--- NOTE | 2018-06-03 04:03 | NUR ---
PATIENT IS SLEEPING. BED IS DOWN LOW WITH SIDE RAILS UP X2. CL IS IN REACH.
[2018-06-03 07:15] LABS: BASOPHILS 0.4 % (0-2); EOSINOPHILS 2.6 % (0-7); HEMATOCRIT 32.2 % (42.0-54.0); HEMOGLOBIN 10.2 g/dL (13.5-17.5); IMMATURE GRANULOCYTES 1.2 % (0-5); LYMPHOCYTES 15.9 % (15-50); MCH 31.6 pg (26.0-34.0); MCHC 31.7 g/dL (31.0-37.0); MCV 99.7 fL (80.0-100.0); MEAN PLATELET VOLUME 9.3 fL (7.4-10.4); MONOCYTES 12.7 % (2-11); NEUTROPHILS 67.2 % (40-80); RBC 3.23 10x6/uL (4.20-6.10); RDW 15.9 % (11.5-14.5)
[2018-06-03 07:26] LABS: CALC OSMOLALITY 278 mosm/kg (275-300); CALCIUM 9.2 mg/dL (8.5-10.1); CARBON DIOXIDE 26.6 mmol/L (21.0-32.0); CHLORIDE - SERUM 105 mmol/L (98-107); CREATININE - SERUM 0.8 mg/dL (0.6-1.3); GLUCOSE 93 mg/dL (74-106); POTASSIUM - SERUM 4.4 mmol/L (3.5-5.1); SODIUM 140 mmol/L (136-145); UREA NITROGEN 12 mg/dL (7-18); eGFR NON AFRICAN AMERICAN > 90 mL/min (90-120)
[2018-06-03 07:43] LABS: PLATELET COUNT 246 10x3/uL (130-400)
[2018-06-03 08:02] VITALS: BP 124/62
--- NOTE | 2018-06-03 09:12 | NUR ---
ALERT AND ORIENTED. NO C/O PAIN. RESP EVEN AND UNLABORED. CL IN REACH.
--- NOTE | 2018-06-03 09:36 | NUR ---
Nutrition Follow Up: Chart reviewed. Pt is eating 94% meal avg on an ADA diet. +BM 06/02/18. Meds and labs reviewed. Pt continues at low nutritional risk. RD following.
--- NOTE | 2018-06-03 13:37 | NUR ---
NO DISTRESS NOTED. CL IN REACH. RESP EVEN AND UNLABORED. REPORTED SORE THROAT. TESTED FOR FLU. RESULTS NEGATIVE.
--- NOTE | 2018-06-03 16:06 | NUR ---
NO CHANGE IN ASSESSMENT. NO C/O PAIN. RESP EVEN AND UNLABORED. CL IN REACH.
[2018-06-03 20:00] VITALS: BP 117/62
--- NOTE | 2018-06-03 20:16 | NUR ---
PT RUNNING TEMP GIVING TYLENOL WITH MED PASS, FLUIDS AND CALL LIGHT WITHIN REACH
--- NOTE | 2018-06-04 01:12 | NUR ---
PT ASLEEP WITH HOME BIPAP ON, FLUIDS AND CALL LIGHT WITHIN REACH
[2018-06-04 08:00] VITALS: BP 106/64
--- NOTE | 2018-06-04 10:51 | NUR ---
ALERT AND ORIENTED. PARTICIPATING IN THERAPY THIS AM.
--- NOTE | 2018-06-04 16:39 | NUR ---
SHOWER TODAY PER OT.
--- NOTE | 2018-06-04 16:54 | NUR ---
PT LYING IN BED. EYES CLOSED. RESP EVEN AND UNLABORED. BED IN LOW SIDE RAILS X2. CALL LIGHT IN REACH. NO SIGNS OF DISTRESS OR PAIN. WILL CONTINUE TO MONITOR.
--- NOTE | 2018-06-04 19:26 | NUR ---
AWAKE AND ALERT. RESTING IN BED. RESPIRARTIONS UNLABORED. INCISION TO RIGHT HIP HEALING WITH 7 DIVINA REMAINING. NO DISTRESS NOTED. CALL LIGHT IN REACH.
[2018-06-04 19:57] VITALS: BP 114/57
--- NOTE | 2018-06-05 02:52 | NUR ---
CONTINUES RESTING IN BED. NO CHANGE IN CONDITION. RESPIRATIONS UNLABORED.
[2018-06-05 08:00] VITALS: BP 105/60
--- NOTE | 2018-06-05 08:00 | NUR ---
SHIFT ASSMT COMPLETED.BREAKFAST GIVEN.PLANS TO GO HOME TODAY.
[2018-06-05] MEDS ORDERED: NORCO-7.5 PO (08:14)
--- NOTE | 2018-06-05 12:00 | NUR ---
EATING LUNCH.SWABBED NARES FOR FLU;RESULTS POS.
[2018-06-05] MEDS ORDERED: TAMIFLU75 MG PO (13:02)
--- NOTE | 2018-06-05 13:15 | NUR ---
WILL CONTINUE WITH DC.
--- NOTE | 2018-06-05 14:56 | NUR ---
PATIENT DISCHARGING HOME TODAY WITH FAMILY. [facility] WILL PROVIDE THERAPY AT HOME. [facility] HAS DELIVERED A BARIATRIC WALKER TO PATIENT. DR. STORM 06/12/18 @ 9:30, DR. HOWARD 06/18/18 @ 11:15. PATIENT CHOICE FORM FOR HOME HEALTH AND [facility] FORM SIGNED, COPY GIVEN TO PATIENT AND FILED IN CHART. DISCHARGE INSTRUCTIONS WITH [facility] [employer] FAXED TO PCP AND TO HOME HEALTH.
== END 2018-06-05 16:55 | disposition home health service (06) | DRG 561 ==
LOC: D.REHAB 15:00
PROVIDERS: ADMIT Emergency Medicine; ATTEND Emergency Medicine
DX: S72.111D Displaced fracture of greater trochanter of right femur, subsequent encounter for closed fracture with routine healing (principal); I25.10 Atherosclerotic heart disease of native coronary artery without angina pectoris; I10 Essential (primary) hypertension; I73.9 Peripheral vascular disease, unspecified; E78.5 Hyperlipidemia, unspecified; E11.40 Type 2 diabetes mellitus with diabetic neuropathy, unspecified; M10.9 Gout, unspecified; K59.09 Other constipation; M19.90 Unspecified osteoarthritis, unspecified site; K25.9 Gastric ulcer, unspecified as acute or chronic, without hemorrhage or perforation; Z96.641 Presence of right artificial hip joint; G47.30 Sleep apnea, unspecified; L30.9 Dermatitis, unspecified

== ENCOUNTER 2018-06-20 12:06 | Outpatient (CLI) | payer MEDICARE, BC ==
[~2018-06-20] VITALS: Ht 172.7 cm; Wt 125.5 kg
[~2018-06-20 12:06] MED LIST changes: +BAYER CHEWABLE81 MG PO; +HYDROCODON-ACE1 EAC2 PO; +NORCO-7.5 PO; +TAMIFLU75 MG PO
--- NOTE | 2018-06-20 13:50 | NUR ---
1300 PICC LINE HAS BEEN INSERTED. CXR ORDERED 1324 PORTABLE CXR 1 VIEW DONE. 1329 LAB DRAWN USING PERIPHERAL VEIN ON RIGHT HAND. CBC WITH DIFF,BUN/CREATININE,ESR,CRP DRAWN AND SENT TO LAB.
--- NOTE | 2018-06-20 13:53 | NUR ---
1335 CXR RESULTS ARE THAT PICC LINE IS IN PLACE WTIH TIP OVERLYING SUPERIOR VENA CAVA. CHERELLE THOMPSON NOTIFIED AND SHE STATES THAT PICC LINE CAN BE USED. 1342 ABX STARTED AFTER FLUSHING LINE WITH 10CC NS. GOOD BLOOD RETURN NOTED PRIOR TO FLUSH.
[2018-06-20 13:57] LABS: BASOPHILS 0.2 % (0-2); EOSINOPHILS 3.2 % (0-7); HEMATOCRIT 34.5 % (42.0-54.0); HEMOGLOBIN 11.1 g/dL (13.5-17.5); IMMATURE GRANULOCYTES 0.6 % (0-5); LYMPHOCYTES 22.2 % (15-50); MCH 31.8 pg (26.0-34.0); MCHC 32.2 g/dL (31.0-37.0); MCV 98.9 fL (80.0-100.0); MEAN PLATELET VOLUME 9.6 fL (7.4-10.4); MONOCYTES 9.1 % (2-11); NEUTROPHILS 64.7 % (40-80); RBC 3.49 10x6/uL (4.20-6.10); RDW 16.4 % (11.5-14.5); WBC 5.4 10x3/uL (4.8-10.8)
[2018-06-20 14:03] VITALS: BP 120/61; Ht 172.7 cm; Wt 125.5 kg
[2018-06-20 14:06] LABS: PLATELET COUNT 185 10x3/uL (130-400)
[2018-06-20 14:07] LABS: C-REACTIVE PROTEIN 1.2 mg/dL (0.0-0.9); CREATININE - SERUM 0.8 mg/dL (0.6-1.3)
--- NOTE | 2018-06-20 15:06 | NUR ---
1445 PT TOLERATED ABX INFUSION WITHOUT COMPLICATIONS. NO C/O ITCHING OR HIVES.
[2018-06-20 15:41] LABS: ERYTHROCYTE SEDIMENTATION RATE 24 mm/hr (0-20)
== END 2018-06-20 14:50 | disposition home or self-care (01) ==
LOC: D.OPS 12:06
PROVIDERS: ATTEND Student in an Organized Health Care Education/Training Program
DX: T84.59XA Infection and inflammatory reaction due to other internal joint prosthesis, initial encounter (principal)

== ENCOUNTER → 2018-06-24 16:05 | Outpatient (CLI) | payer MEDICARE, BC ==
[2018-06-20 14:03] VITALS: BMI 42.0
[2018-06-24 16:17] LABS: BASOPHILS 0.4 % (0-2); EOSINOPHILS 4.1 % (0-7); HEMATOCRIT 35.3 % (42.0-54.0); IMMATURE GRANULOCYTES 0.4 % (0-5); LYMPHOCYTES 20.4 % (15-50); MCH 31.8 pg (26.0-34.0); MCHC 31.2 g/dL (31.0-37.0); MEAN PLATELET VOLUME 9.7 fL (7.4-10.4); MONOCYTES 8.8 % (2-11); NEUTROPHILS 65.9 % (40-80); PLATELET COUNT 179 10x3/uL (130-400); RBC 3.46 10x6/uL (4.20-6.10); RDW 16.4 % (11.5-14.5); WBC 5.6 10x3/uL (4.8-10.8)
[2018-06-24 16:36] LABS: C-REACTIVE PROTEIN 0.4 mg/dL (0.0-0.9); CREATININE - SERUM 0.7 mg/dL (0.6-1.3)
[2018-06-24 17:57] LABS: ERYTHROCYTE SEDIMENTATION RATE 16 mm/hr (0-20)
== END | disposition home or self-care (01) ==
LOC: D.LABREF 16:05
PROVIDERS: ATTEND Family Medicine
DX: T84.59XA Infection and inflammatory reaction due to other internal joint prosthesis, initial encounter (principal)

== ENCOUNTER → 2018-07-01 14:04 | Outpatient (CLI) | payer MEDICARE, BC ==
[2018-07-01 15:36] LABS: BASOPHILS 0.5 % (0-2); EOSINOPHILS 7.2 % (0-7); HEMATOCRIT 41.2 % (42.0-54.0); HEMOGLOBIN 13.2 g/dL (13.5-17.5); IMMATURE GRANULOCYTES 0.3 % (0-5); LYMPHOCYTES 20.7 % (15-50); MONOCYTES 7.9 % (2-11); NEUTROPHILS 63.4 % (40-80); PLATELET COUNT 193 10x3/uL (130-400); RBC 4.12 10x6/uL (4.20-6.10); RDW 15.8 % (11.5-14.5); WBC 5.8 10x3/uL (4.8-10.8)
[2018-07-01 15:42] LABS: CREATININE - SERUM 0.6 mg/dL (0.6-1.3)
[2018-07-01 16:56] LABS: ERYTHROCYTE SEDIMENTATION RATE 20 mm/hr (0-20)
== END | disposition home or self-care (01) ==
LOC: D.LABREF 14:04
PROVIDERS: Family Medicine
DX: T84.59XA Infection and inflammatory reaction due to other internal joint prosthesis, initial encounter (principal)

== ENCOUNTER → 2018-07-08 13:40 | Outpatient (CLI) | payer MEDICARE, BC ==
[2018-06-20 14:03] VITALS: BMI 42.0
[2018-07-08 15:00] LABS: BASOPHILS 0.3 % (0-2); EOSINOPHILS 3.7 % (0-7); HEMATOCRIT 39.4 % (42.0-54.0); HEMOGLOBIN 12.8 g/dL (13.5-17.5); IMMATURE GRANULOCYTES 0.6 % (0-5); LYMPHOCYTES 18.2 % (15-50); MCH 32.5 pg (26.0-34.0); MCHC 32.5 g/dL (31.0-37.0); MEAN PLATELET VOLUME 10.3 fL (7.4-10.4); MONOCYTES 9.2 % (2-11); PLATELET COUNT 192 10x3/uL (130-400); RBC 3.94 10x6/uL (4.20-6.10); RDW 15.3 % (11.5-14.5); WBC 7.9 10x3/uL (4.8-10.8)
[2018-07-08 15:20] LABS: C-REACTIVE PROTEIN 0.4 mg/dL (0.0-0.9); CREATININE - SERUM 0.8 mg/dL (0.6-1.3)
[2018-07-08 16:11] LABS: ERYTHROCYTE SEDIMENTATION RATE 16 mm/hr (0-20)
== END | disposition home or self-care (01) ==
LOC: D.LABREF 13:40
PROVIDERS: ATTEND Family Medicine
DX: T84.59XA Infection and inflammatory reaction due to other internal joint prosthesis, initial encounter (principal)

== ENCOUNTER → 2018-07-15 15:45 | Outpatient (CLI) | payer MEDICARE, BC ==
[2018-06-20 14:03] VITALS: BMI 42.0
[2018-07-15 15:56] LABS: BASOPHILS 0.3 % (0-2); EOSINOPHILS 4.1 % (0-7); HEMATOCRIT 41.5 % (42.0-54.0); HEMOGLOBIN 13.4 g/dL (13.5-17.5); IMMATURE GRANULOCYTES 0.3 % (0-5); MCH 32.3 pg (26.0-34.0); MCHC 32.3 g/dL (31.0-37.0); MONOCYTES 8.3 % (2-11); PLATELET COUNT 218 10x3/uL (130-400); RBC 4.15 10x6/uL (4.20-6.10); RDW 15.1 % (11.5-14.5); WBC 7.4 10x3/uL (4.8-10.8)
[2018-07-15 16:10] LABS: C-REACTIVE PROTEIN 0.4 mg/dL (0.0-0.9); CREATININE - SERUM 0.8 mg/dL (0.6-1.3)
[2018-07-15 17:38] LABS: ERYTHROCYTE SEDIMENTATION RATE 24 mm/hr (0-20)
== END | disposition home or self-care (01) ==
LOC: D.LABREF 15:45
PROVIDERS: ATTEND Family Medicine
DX: T84.59XA Infection and inflammatory reaction due to other internal joint prosthesis, initial encounter (principal)

== ENCOUNTER → 2018-07-22 13:41 | Outpatient (CLI) | payer MEDICARE, BC ==
[2018-06-20 14:03] VITALS: BMI 42.0
[2018-07-22 15:07] LABS: BASOPHILS 0.3 % (0-2); HEMATOCRIT 38.6 % (42.0-54.0); HEMOGLOBIN 12.2 g/dL (13.5-17.5); IMMATURE GRANULOCYTES 0.5 % (0-5); LYMPHOCYTES 17.9 % (15-50); MCH 31.6 pg (26.0-34.0); MCHC 31.6 g/dL (31.0-37.0); MEAN PLATELET VOLUME 9.8 fL (7.4-10.4); MONOCYTES 9.3 % (2-11); PLATELET COUNT 178 10x3/uL (130-400); RBC 3.86 10x6/uL (4.20-6.10); RDW 14.9 % (11.5-14.5)
[2018-07-22 15:15] LABS: CREATININE - SERUM 0.7 mg/dL (0.6-1.3); UREA NITROGEN 18 mg/dL (7-18)
[2018-07-22 15:20] LABS: C-REACTIVE PROTEIN < 0.2 mg/dL (0.0-0.9)
[2018-07-22 16:05] LABS: ERYTHROCYTE SEDIMENTATION RATE 10 mm/hr (0-20)
== END | disposition home or self-care (01) ==
LOC: D.LABREF 13:41
PROVIDERS: ATTEND Family Medicine
DX: T84.59XA Infection and inflammatory reaction due to other internal joint prosthesis, initial encounter (principal)

== ENCOUNTER → 2018-07-29 15:05 | Outpatient (CLI) | payer MEDICARE, BC ==
[2018-06-20 14:03] VITALS: BMI 42.0
[2018-07-29 16:00] LABS: BASOPHILS 0.3 % (0-2); EOSINOPHILS 2.4 % (0-7); HEMATOCRIT 39.4 % (42.0-54.0); HEMOGLOBIN 12.6 g/dL (13.5-17.5); IMMATURE GRANULOCYTES 0.3 % (0-5); LYMPHOCYTES 17.9 % (15-50); MCH 31.8 pg (26.0-34.0); MCV 99.5 fL (80.0-100.0); MEAN PLATELET VOLUME 9.5 fL (7.4-10.4); MONOCYTES 7.9 % (2-11); NEUTROPHILS 71.2 % (40-80); PLATELET COUNT 200 10x3/uL (130-400); RBC 3.96 10x6/uL (4.20-6.10); RDW 14.7 % (11.5-14.5); WBC 6.6 10x3/uL (4.8-10.8)
[2018-07-29 16:15] LABS: CREATININE - SERUM 0.9 mg/dL (0.6-1.3); UREA NITROGEN 16 mg/dL (7-18)
[2018-07-29 16:18] LABS: C-REACTIVE PROTEIN < 0.2 mg/dL (0.0-0.9)
[2018-07-29 17:10] LABS: ERYTHROCYTE SEDIMENTATION RATE 21 mm/hr (0-20)
== END | disposition home or self-care (01) ==
LOC: D.LABREF 15:05
PROVIDERS: ATTEND Family Medicine
DX: T84.59XA Infection and inflammatory reaction due to other internal joint prosthesis, initial encounter (principal)